=== PATIENT | male | born 2000 | race African-American/Black ===

== ENCOUNTER 2021-03-09 10:44 | Emergency (ER) | payer MEDICAID ==
[~2021-03-09] VITALS: Ht 180.3 cm; Wt 100.0 kg
[2021-03-09 10:54] VITALS: BP 112/42
[2021-03-09] MEDS ORDERED: DOCU100T MT (11:28)
[2021-03-09] MEDS ORDERED: PHEN51CR24 TP (11:28)
[2021-03-09] MEDS ORDERED: LIDO5JEL8 MM (11:28)
[2021-03-09] MEDS ORDERED: LIDOCAINE HCL 2% JELLY 5ML MM ONE (11:30)
== END 2021-03-09 11:56 | disposition home or self-care (01) ==
LOC: ER 11:04
DX: K60.2 Anal fissure, unspecified (principal)
CPT/HCPCS: 99282

== ENCOUNTER 2023-01-20 12:47 | Emergency (ER) | payer MEDICAID, OTHER ==
[~2023-01-20] VITALS: Ht 185.4 cm; Wt 87.0 kg
[~2023-01-20 12:47] MED LIST: DOCU100T MT; LIDO5JEL8 MM; PHEN51CR24 TP
[2023-01-20 13:02] VITALS: BP 0/0
== END 2023-01-20 16:22 | disposition left against medical advice (07) ==
LOC: ER 15:30
DX: R51.9 Headache, unspecified (principal); Z53.21 Procedure and treatment not carried out due to patient leaving prior to being seen by health care provider
CPT/HCPCS: 99281

== ENCOUNTER 2024-02-13 05:03 | Emergency (ER) | payer MEDICAID, OTHER ==
[~2024-02-13] VITALS: Ht 180.3 cm; Wt 69.0 kg
[2024-02-13 05:24] VITALS: BP 127/82; PULSE 108; RESP 18; TEMP 98.2; O2SAT 99
== END 2024-02-13 07:44 | disposition left against medical advice (07) ==
LOC: ER 05:03
DX: R44.0 Auditory hallucinations (principal); Z53.21 Procedure and treatment not carried out due to patient leaving prior to being seen by health care provider